=== PATIENT | female | born 1950 | race Caucasian/White ===

== ENCOUNTER 2024-07-22 12:13 | Emergency (ER) | payer OTHER, MEDICARE ==
[~2024-07-22] VITALS: Ht 167.6 cm; Wt 138.3 kg
[2024-07-22] MEDS ORDERED: HYDROcodone 7.5-APAP 325 TAB PO ONE (13:10)
[2024-07-22] MEDS ORDERED: Methocarbamol 500 MG Tab PO ONE (13:10)
[2024-07-22] MEDS ORDERED: Methyl Salicylate/Menth/Camph 57 GM TUBE TOP ONE (13:15)
== END 2024-07-22 16:34 | disposition home or self-care (01) ==
LOC: ER 12:13
DX: S16.1XXA Strain of muscle, fascia and tendon at neck level, initial encounter (principal); M62.830 Muscle spasm of back; G89.29 Other chronic pain; I10 Essential (primary) hypertension; Z88.0 Allergy status to penicillin; Z88.8 Allergy status to other drugs, medicaments and biological substances; Z88.1 Allergy status to other antibiotic agents; Z88.5 Allergy status to narcotic agent; V89.2XXA Person injured in unspecified motor-vehicle accident, traffic, initial encounter
CPT/HCPCS: 72040; 72070; 99284-25; A9270